=== PATIENT | male | born 1975 | race Caucasian/White ===

== ENCOUNTER → 2016-10-23 | Outpatient (CLI) | payer OTHER ==
[~2016-10-23] VITALS: Ht 182.9 cm; Wt 95.3 kg
[~2016-10-23] MED LIST: ANDROGEL75 GM TD; ASPIR 8181 M1 PO; BACTRIM DS TAB1 EAC1 PO; BENICAR 5 MG5 M1 PO; BYSTOLIC20 MG PO; CELEBREX 200 M200 MG PO; COLCHICINE0.6 M1 PO; CRESTOR10 MG PO; FISH OIL 1,001000 M1 PO; GLUCOSAMINE1000 MG PO; IRBESARTAN300 MG PO; KEFLEX500 MG PO; MULTIVITAMINS1 EAC7 PO; PRILOSEC 10MG C10 MG PO; TRAMADOL 50 MG50 MG PO; TYLENOL EXTRA500 MG PO; VANCOMYCIN1 GM/2502 IV
--- NOTE | ~2016-10-23 | HPC ---
[facility] [place] [address] PAIN MANAGEMENT CONSULTATION Name: NILESH ORTIZ JOSE Room #: REG NICANOR Marcos#: [id number] Admission: 10/23/16 Attend Phys: Neel Guerrero DO Discharge: Date of : 71 Report #: [id number] THIS REPORT FOR: //name// CC: Jason Guerrero HISTORY OF PRESENT ILLNESS: The patient is a very pleasant 41-year-old gentleman seen in consultation at the request Dr. Hatfield for evaluation of pain, neck, left shoulder, posterior arm with paresthesia in the fingers. The patient had prior been seen in the pain clinic approximately just shy of 5 years ago for lumbar radicular issues, which resolved nicely. He notes starting in April of this year without antecedent trauma and overuse developed pain in the left shoulder, scapula, posterior arm with paresthesia going into the hand and lateral fingers. He has tried massage, Medrol Dosepak and Tylenol, all with moderate efficacy. He notes the pain is exacerbated with movement. He describes continuous gnawing sensation that he rates at 6-8 on a VAS. REVIEW OF SYSTEMS: Complete review of systems was attached to the chart and was gone over with the patient. He is . He does not smoke or drink alcohol to excess. History of hypertension, treated with Bystolic and irbesartan. Other than lumbar radicular pain, he has had hamstring surgery and right knee surgery in 2006 and 2007 respectively. He has enjoyed remarkably good health otherwise. He is . 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 He has continued to work despite pain. Pain impact score is fairly low, averaging 20/70. PHYSICAL EXAMINATION: VITAL SIGNS: Reveals a 6 feet tall, 200-pound gentleman in modest distress, BMI is 28.5 kilograms per meter squared. Blood pressure is 116/72, pulse on EMR, respirations 16. NECK: Thyroid is unremarkable. NEUROLOGIC: Cranial nerves 2-12 are grossly intact. Cervical range of motion is full with nominally positive Lhermitte's going to the left. Subjective tenderness in the left lateral neck, pain radiates into the superior scapula, posterior deltoid and has subjective paresthesia into the lateral two fingers. Hand grasp is objectively pretty symmetric. Tinel's is negative. HEART: Regular rhythmical, though somewhat bradycardic, has a 1-2/6 systolic ejection murmur. LUNGS: Clear. ABDOMEN: Unremarkable. EXTREMITIES: Lower extremity strength is symmetric. SKIN: Integument is intact. We reviewed MRI of the cervical spine from 10/05/2016. At C7-T1, does have left facet arthropathy and small left joint effusion and a degree of left neural foraminal stenosis correlating with his left CA radicular symptoms. [address] [address] PAIN MANAGEMENT CONSULTATION Name: NILESH ORTIZ Room #: REG [facility] Marcos#: [id number] Admission: 10/23/16 Attend Phys: Neel Guerrero DO Discharge: Date of : 71 Report #: [id number] ASSESSMENT: Symptomatic cervical radiculopathy by clinical exam. RECOMMENDATIONS: 1. We will trial 30-day course of Celebrex 200 mg 1 a day. 2. Cervical epidural injection under fluoroscopy today. 3. Follow up in 3 weeks for reevaluation, cancel if doing well. Thank you for allowing me to participate in the patient's care. I will keep you abreast of his progress. PROCEDURE: Cervical epidural injection under fluoroscopy. PROCEDURE NOTE: After written and informed consent was obtained including risk of dural puncture, spinal cord trauma, paralysis and increased pain, the patient was taken to the fluoroscopy suite and placed in the prone position, with appropriate abdominal bolstering, neck was flexed, palms under the thighs. Skin was prepped with ChloraPrep. Sterile draping was applied. Skin wheal with 1% Xylocaine was raised. A 22-gauge 3-1/2 inch epidural Tuohy needle was placed via a midline approach at the C7-T1 interspace, advanced under biplanar fluoroscopy using continuous loss of resistance. With appropriate loss of resistance at the expected depth on lateral view, the glass loss of resistance syringe was disconnected. A low volume extension tubing was connected to the needle and a 5 mL syringe. Negative aspiration for cerebrospinal fluid or blood was noted. A 1 mL of Omnipaque was injected which showed spread within the epidural space on biplanar fluoroscopy. This was followed with 80 mg of triamcinolone plus 1 mL of 1.5% preservative Xylocaine. Needle was withdrawn to the interspinous ligament, 0.5 mL of Xylocaine was used to flush the needle. The needle was then completely withdrawn. The area was cleansed. Band-Aid was applied. The patient was allowed to move off the procedure table and ambulated to the recovery room, monitored for an appropriate period of time, discharged in good and stable condition. <ELECTRONICALLY SIGNED> By: Neel Guerrero DO 10/29/16 [id number] Neel Guerrero DO /nt
[2016-10-23 09:35] VITALS: BP 116/72
== END | disposition home or self-care (01) ==
LOC: PAIN 08:11
DX: M54.12 Radiculopathy, cervical region (principal); M54.16 Radiculopathy, lumbar region; I10 Essential (primary) hypertension; Z98.890 Other specified postprocedural states; Z79.899 Other long term (current) drug therapy

== ENCOUNTER → 2016-11-05 | Outpatient (CLI) | payer OTHER | LOC: CAT 10-21 08:11 | DX: Z13.6 Encounter for screening for cardiovascular disorders (principal) ==

== ENCOUNTER → 2020-03-15 | Outpatient (CLI) | payer OTHER | LOC: ULTRA 13:37 | PROVIDERS: ATTEND Family Medicine | DX: N28.1 Cyst of kidney, acquired (principal); K76.0 Fatty (change of) liver, not elsewhere classified; R10.11 Right upper quadrant pain ==

== ENCOUNTER → 2020-10-21 | Outpatient (CLI) | payer OTHER | LOC: SJCVCIMAG 06:33 | PROVIDERS: ATTEND Family Medicine | DX: I10 Essential (primary) hypertension (principal) ==